=== PATIENT | male | born 1985 | race Hispanic/Latino ===

== ENCOUNTER 2018-10-22 19:34 | Emergency (ER) | payer BC ==
[2018-10-22] MEDS ORDERED: HYDROCODONE/ACETAMINOPHEN 5/325 MG TAB ONE (20:00)
[2018-10-22] MEDS ORDERED: TETANUS/DIPHTHERIA TOXOID [ADULT] 0.5 ML VIAL IM ONE (20:00)
[2018-10-22] MEDS ORDERED: LEVOFLOXACIN 500 MG TABLET ONE (20:28)
[2018-10-22] MEDS ORDERED: KETOROLAC TROMETHAMINE 60 MG/2 ML VIAL ONE (20:28)
== END 2018-10-22 20:39 | disposition home or self-care (01) ==
LOC: EDH 19:34
DX: T63.591A Toxic effect of contact with other venomous fish, accidental (unintentional), initial encounter (principal); S61.441A Puncture wound with foreign body of right hand, initial encounter; W45.8XXA Other foreign body or object entering through skin, initial encounter; Y93.89 Activity, other specified; Y92.89 Other specified places as the place of occurrence of the external cause; Y99.8 Other external cause status
CPT/HCPCS: 73130; 90471; 90714; 96372; 99284; J1885